=== PATIENT | female | born 1995 | race Caucasian/White ===

== ENCOUNTER 2020-07-01 05:30 | Inpatient (IN) | payer OTHER ==
[2020-07-01] MEDS ORDERED: AMPICILLIN - 2 GM in SODIUM CHLORIDE 100 ML IVPB ONE (06:45)
[2020-07-01 07:33] VITALS: BMI 35.4
[2020-07-01] MEDS ORDERED: ELECTROLYTE-148 SOLN 1,000 ML IV SCH (08:15)
[2020-07-01 09:10] LABS: BASO % 0.4 % (0-2.0); HEMATOCRIT 34.1 % (32.4-45.2); HEMOGLOBIN 11.4 GM/dL (10.7-15.3); INR 0.97 (0.83-1.09); MCH 29.3 pg (25.7-33.7); MCHC 33.5 g/dl (32.0-36.0); MEAN CELL VOLUME 87.3 fl (80-96); MEAN PLT VOLUME 10.8 fl (7.5-11.1); MONO % 6.1 % (3.8-10.2); NEUT % 75.5 % (42.8-82.8); PLATELET COUNT 232 K/MM3 (134-434); PROTHROMBIN TIME (PATIENT) 11.4 SEC (9.7-13.0); RDW 13.7 % (11.6-15.6); WHITE BLOOD COUNT 8.4 K/mm3 (4.0-10.0)
[2020-07-01] MEDS: LEVOTHYROXINE NA 50 MCG TABLET (FP) PO SCH (09:10)
[2020-07-01 09:13] LABS: ACTIVATED PTT 29.6 SECONDS (25.2-36.5)
[2020-07-01 09:17] LABS: BLOOD UREA NITROGEN 8.6 mg/dL (7-18); CALCIUM 8.6 mg/dL (8.5-10.1); CREATININE 0.5 mg/dL (0.55-1.3); POTASSIUM 4.2 mmol/L (3.5-5.1)
[2020-07-01] MEDS: AMPICILLIN - 1 GM in SODIUM CHLORIDE 100 ML IVPB SCH ×3 (10:32→18:42)
[2020-07-01] MEDS ORDERED: AMPICILLIN - 1 GM in SODIUM CHLORIDE 100 ML IVPB SCH (11:15)
[2020-07-01] MEDS ORDERED: OXYTOCIN 30 UNITS in 0.9% NS 30 UNIT/500 ML INFUS.BAG IVPB SCH (11:45)
[2020-07-01] MEDS ORDERED: AMPICILLIN SODIUM 1 GM VIAL ONE ×2 (14:25→18:28)
[2020-07-01] MEDS ORDERED: BUTORPHANOL TARTRATE 1 MG/ML VIAL ONE (16:09)
[2020-07-01] MEDS ORDERED: PROMETHAZINE HCL 25 MG/1 ML VIAL ONE (16:09)
[2020-07-01] MEDS ORDERED: FENTANYL/BUPIVACAINE/NS/PF - PCEA - 50 ML DISP.SYRIN EP ONE (17:32)
[2020-07-01] MEDS ORDERED: PCA PUMP NR ONE ×2 (17:32→19:04)
[2020-07-01] MEDS ORDERED: NALOXONE HCL 0.4 MG/ML VIAL IVPUSH PRN (17:44)
[2020-07-01] MEDS ORDERED: FENTANYL/BUPIVACAINE/NS/PF - PCEA - 50 ML DISP.SYRIN EP SCH (17:45)
[2020-07-01] MEDS ORDERED: BUPIVACAINE HCL/PF 0.25% (2.5MG/ML) 10 ML VIAL ONE (17:46)
[2020-07-01] MEDS ORDERED: BUTORPHANOL TARTRATE 1 MG/ML VIAL IVPB ONE (18:28)
[2020-07-01] MEDS ORDERED: PROMETHAZINE HCL 25 MG/1 ML VIAL IVPB ONE (18:29)
[2020-07-01] MEDS ORDERED: OXYTOCIN 20 UNITS in 0.9% NS 20 UNIT/1,000 ML INFUS.BAG IV ONE ×3 (19:44→21:50)
[2020-07-01] MEDS ORDERED: BENZOCAINE 28 GM HEMORRHOIDAL OINTMENT TP PRN (20:25)
[2020-07-01] MEDS ORDERED: WITCH HAZEL 50% (TUCKS) 40 PAD/JAR PAD TP PRN (20:25)
[2020-07-01] MEDS ORDERED: BISACODYL 10 MG SUPP.RECT RC PRN (20:25)
[2020-07-01] MEDS ORDERED: METHYLERGONOVINE MALEATE 0.2 MG/1 ML AMP IM PRN (20:25)
[2020-07-01] MEDS ORDERED: BENZOCAINE 20% 57 GM BOTTLE TP PRN (20:25)
[2020-07-01] MEDS ORDERED: OXYTOCIN 20 UNITS in 0.9% NS 1000 ML INFUS.BAG IV ONE (20:26)
[2020-07-02] MEDS ORDERED: LEVOTHYROXINE NA 50 MCG TABLET (FP) ONE (06:05)
[2020-07-02] MEDS: LEVOTHYROXINE NA 50 MCG TABLET (FP) PO SCH (06:21)
[2020-07-02] MEDS: ACETAMINOPHEN 325 MG TABLET (FP) PO PRN ×3 (06:25→23:46)
[2020-07-02] MEDS: IBUPROFEN 600 MG TABLET (FP) PO PRN ×3 (06:25→23:47)
[2020-07-02 08:11] LABS: BASO % 0.4 % (0-2.0); EOS % 0.3 % (0-4.5); HEMATOCRIT 29.4 % (32.4-45.2); LYMPH % 12.8 % (8-40); MCH 29.9 pg (25.7-33.7); MCHC 34.2 g/dl (32.0-36.0); MEAN CELL VOLUME 87.4 fl (80-96); MEAN PLT VOLUME 10.9 fl (7.5-11.1); MONO % 8.6 % (3.8-10.2); NEUT % 77.9 % (42.8-82.8); PLATELET COUNT 206 K/MM3 (134-434); RBC 3.36 M/mm3 (3.60-5.2); RDW 13.7 % (11.6-15.6); WHITE BLOOD COUNT 9.8 K/mm3 (4.0-10.0)
[2020-07-02] MEDS ORDERED: FLU VACCINE (FLULAVAL) PF 60 MCG/0.5 ML SYRINGE 2020-2021 IM ONE (10:00)
[2020-07-02] MEDS ORDERED: SENNOSIDES/DOCUSATE COMBO (SENNA PLUS) TABLET (UD) PO PRN (22:00)
[2020-07-02 23:23] VITALS: BP 124/77; PULSE 81; TEMP 97.7
[2020-07-03] MEDS ORDERED: LEVOTHYROXINE NA 50 MCG TABLET (FP) PO SCH (07:00)
[2020-07-03] MEDS: IBUPROFEN 600 MG TABLET (FP) PO PRN (11:49)
[2020-07-03] MEDS: ACETAMINOPHEN 325 MG TABLET (FP) PO PRN (11:50)
== END 2020-07-03 14:00 | disposition home or self-care (01) | DRG 560 ==
LOC: JDEL 05:30 → JLDR 06:00 → J3W 22:05
PROVIDERS: ADMIT Specialist; ATTEND Specialist
PROC: 10E0XZZ Delivery of Products of Conception, External Approach (ICD-10-PCS; principal; 2020-07-01)
PROC: 0W8NXZZ Division of Female Perineum, External Approach (ICD-10-PCS; 2020-07-01)
DX: O42.02 Full-term premature rupture of membranes, onset of labor within 24 hours of rupture (principal); Z3A.39 39 weeks gestation of pregnancy; Z37.0 Single live birth; O99.824 Streptococcus B carrier state complicating childbirth
CPT/HCPCS: 36415; 59409; 80048; 85025; 85610; 85730; 86780; 86850; 86900; 86901; G0008; Q2036; U0003